=== PATIENT | female | born 1970 | race Caucasian/White ===

== ENCOUNTER 2016-08-21 12:42 | Emergency (ER) | payer OTHER ==
[~2016-08-21] VITALS: Ht 165.1 cm; Wt 77.1 kg
[~2016-08-21 12:42] MED LIST: ATARAX,VISTARIL50 MG PO; ATIVAN1 MG PO; BIAXIN500 MG PO; CARBIDOPA/LEVOD1 TA1 PO; CLARITIN10 MG PO; CYMBALTA60 MG PO; DEPAKOTE500 MG PO; DICYCLOMINE HCL20 MG PO; DOXYCYCLINE MO100 M1 PO; KEFLEX500 MG PO; LOTRIMIN 1%15 GM T; MEDROL DOSEPAK4 MG PO; METHOCARBAMOL750 M1 PO; NATURE'S BLEND F1 MG PO; ONDANSETRON HYDR4 M1 PO; Phenergan25 MG PO; QUETIAPINE FUMA25 MG PO; THERA TABS1 TAB PO; TRAZODONE50 MG PO; VALIUM10 MG PO; VIBRAMYCIN100 MG PO; VITAMIN B-11 TAB PO; WELLBUTRIN SR150 MG PO; XANAX2 M1 PO
[2016-08-21] MEDS ORDERED: SUBOXONE 8 MG-1 EACH SL (12:46)
[2016-08-21] MEDS ORDERED: LIDOCAINE HCL100 M1 MM (12:53)
[2016-08-21] MEDS ORDERED: CLINDAMYCIN150 MG PO (12:53)
== END 2016-08-21 13:58 | disposition home or self-care (01) ==
LOC: ED 12:42
DX: K04.7 Periapical abscess without sinus (principal); R03.0 Elevated blood-pressure reading, without diagnosis of hypertension; F41.9 Anxiety disorder, unspecified; F17.200 Nicotine dependence, unspecified, uncomplicated; F31.9 Bipolar disorder, unspecified; Z88.0 Allergy status to penicillin; Z90.49 Acquired absence of other specified parts of digestive tract; Z88.1 Allergy status to other antibiotic agents; Z88.8 Allergy status to other drugs, medicaments and biological substances; Z79.899 Other long term (current) drug therapy

== ENCOUNTER 2019-09-12 09:56 | Emergency (ER) | payer OTHER ==
[~2019-09-12 09:56] MED LIST changes: +CLINDAMYCIN150 MG PO; +LIDOCAINE HCL100 M1 MM; +SUBOXONE 8 MG-1 EACH SL
[2019-09-12 10:30] LABS: BASO % 0.5 % (0.0-1.0); EOS # 0.1 10*3/uL (0.0-0.4); EOS % 1.3 % (1.0-4.0); HEMATOCRIT 43.3 % (37.0-47.0); LYMPH % 35.6 % (27.0-41.0); MEAN CELL VOLUME 95.4 fl (81.0-99.0); MEAN CORPUSCULAR HGB 32.2 pg (27.0-31.0); MEAN CORPUSCULAR HGB CONC 33.7 g/dl (33.0-37.0); MEAN PLATELET VOLUME 9.2 fl (9.6-12.3); MONO # 0.4 10*3/uL (0.1-1.0); MONO % 6.9 % (3.0-9.0); NEUT % 55.3 % (47.0-73.0); PLATELET COUNT AUTOMATED 290 10*3/uL (130-400); RED BLOOD COUNT 4.54 10*6/uL (4.10-5.10); RED CELL DISTRI WIDTH 12.7 % (0-14.5); WHITE BLOOD COUNT 5.5 10*3/uL (4.8-10.8)
[2019-09-12 10:34] LABS: BACTERIA 2+; BILIRUBIN NEGATIVE (NEGATIVE); BLOOD NEGATIVE (NEGATIVE); CLARITY SL CLOUDY (CLEAR); COLOR YELLOW (YELLOW); EPITHELIAL CELLS 0-2; GLUCOSE NEGATIVE (NEGATIVE); KETONE NEGATIVE (NEGATIVE); LEUKO ESTERASE 2+ (NEGATIVE); NITRITE NEGATIVE (NEGATIVE); PH 6.5 (5.0-9.0); SPECIFIC GRAVITY 1.005 (1.005-1.030); URINE AMPHETAMINES < 1000 (1000ng/ml); URINE BARBITURATES < 200 (200ng/ml); URINE BENZODIAZEPINES < 200 (200ng/ml); URINE CANNABINOIDS (THC) < 50 (50ng/ml); URINE COCAINE > 300 (300ng/ml); URINE METHADONE < 300 (300ng/ml); URINE OPIATES < 300 (300ng/ml); UROBILINOGEN 0.2 E.U./dl (0.2-1.0); WBC 16-20 wbc/hpf (0-5)
[2019-09-12 10:37] LABS: URINE PHENCYCLIDINE < 25 (25ng/ml)
[2019-09-12 10:44] LABS: ACT PARTIAL THROMBO TIME 25.1 SECONDS (20.0-32.1)
[2019-09-12 10:47] LABS: ALBUMIN 3.6 gm/dl (3.1-4.5); ALKALINE PHOSPHATASE 38 U/L (45-117); BUN 9 mg/dl (7-24); CHLORIDE 110 mmol/L (98-107); CREATININE 0.88 mg/dL (0.55-1.02); LIPASE 66 U/L (73-393); POTASSIUM 3.3 mmol/L (3.5-5.1); SGOT/AST 28 IU/L (3-35); SGPT/ALT 51 U/L (12-78); SODIUM 140 mmol/L (136-145); TOTAL PROTEIN 6.9 gm/dL (6.4-8.2)
[2019-09-12 10:48] LABS: ACETAMINOPHEN (TYLENOL) < 5.0 ug/ml (10-30); ETHYL ALCOHOL < 3.0 mg/dl (<3); TROPONIN I < 0.015 ng/ml (<0.045)
== END 2019-09-12 20:46 | disposition home health service (06) ==
LOC: ED 09:56
PROVIDERS: Emergency Medicine
DX: F31.9 Bipolar disorder, unspecified (principal); F41.9 Anxiety disorder, unspecified; Z88.8 Allergy status to other drugs, medicaments and biological substances; Z79.899 Other long term (current) drug therapy

== ENCOUNTER 2020-08-01 17:15 | Inpatient (IN) | payer OTHER ==
[~2020-08-01] VITALS: Ht 165.1 cm; Wt 75.1 kg
[2020-08-01 17:22] VITALS: BP 150/90
[2020-08-01 18:09] LABS: BILIRUBIN Negative (Negative); BLOOD Negative (Negative); CLARITY Cloudy (Clear); COLOR Yellow (Yellow); GLUCOSE Negative (Negative); KETONE Trace (Negative); LEUKO ESTERASE Trace (Negative); NITRITE Negative (Negative); PH 7.5 (4.5-8.0); SPECIFIC GRAVITY 1.025 (1.001-1.030)
[2020-08-01 18:15] LABS: BACTERIA 2+; EPITHELIAL CELLS TNTC; MUCOUS TRACE; RBC 0-2 rbc/hpf (0-2); URINE AMPHETAMINES < 1000 (1000ng/ml); URINE BARBITURATES < 200 (200ng/ml); URINE BENZODIAZEPINES < 200 (200ng/ml); URINE CANNABINOIDS (THC) < 50 (50ng/ml); URINE COCAINE > 300 (300ng/ml); URINE METHADONE < 300 (300ng/ml); URINE OPIATES > 300 (300ng/ml)
[2020-08-01 18:16] LABS: URINE PHENCYCLIDINE < 25 (25ng/ml)
[2020-08-01] MEDS ORDERED: KLONOPIN1 M1 PO (18:22)
[2020-08-01 18:30] LABS: BASO % 0.4 % (0.0-1.0); EOS % 0.4 % (1.0-4.0); HEMATOCRIT 40.3 % (37.0-47.0); LYMPH # 1.8 10*3/uL (1.3-4.4); LYMPH % 26.1 % (27.0-41.0); MEAN CORPUSCULAR HGB 29.3 pg (27.0-31.0); MEAN CORPUSCULAR HGB CONC 32.3 g/dl (33.0-37.0); MONO # 0.4 10*3/uL (0.1-1.0); MONO % 5.1 % (3.0-9.0); NEUT # 4.8 10*3/uL (2.3-7.9); NEUT % 67.9 % (47.0-73.0); PLATELET COUNT AUTOMATED 315 10*3/uL (130-400); RED BLOOD COUNT 4.43 10*6/uL (4.10-5.10); RED CELL DISTRI WIDTH 12.2 % (0-14.5); WHITE BLOOD COUNT 7.1 10*3/uL (4.8-10.8)
[2020-08-01 18:46] LABS: ALBUMIN 3.3 gm/dl (3.1-4.5); ALKALINE PHOSPHATASE 59 U/L (45-117); BUN 10 mg/dl (7-24); CHLORIDE 110 mmol/L (98-107); LIPASE 62 U/L (73-393); POTASSIUM 4.1 mmol/L (3.5-5.1); SGOT/AST 14 IU/L (3-35); SGPT/ALT 25 U/L (12-78); SODIUM 140 mmol/L (136-145); TOTAL PROTEIN 7.6 gm/dL (6.4-8.2)
[2020-08-01 18:50] LABS: ETHYL ALCOHOL < 3.0 mg/dl (<3)
[2020-08-01 20:00] VITALS: BP 115/72
[2020-08-02] VITALS: BP 142/83
[2020-08-02 04:00] VITALS: BP 133/69
[2020-08-02 08:00] VITALS: BP 134/75
[2020-08-02 12:00] VITALS: BP 132/82; BP 143/77
[2020-08-02 16:02] VITALS: BP 135/74
[2020-08-02 20:00] VITALS: BP 130/77
[2020-08-03] VITALS: BP 123/62
[2020-08-03 08:00] VITALS: BP 131/76; BP 140/90
[2020-08-03 12:00] VITALS: BP 135/80
[2020-08-03 16:00] VITALS: BP 134/84
[2020-08-03 20:00] VITALS: BP 138/88
[2020-08-04] VITALS: BP 119/68
[2020-08-04 08:00] VITALS: BP 140/91
[2020-08-04 12:00] VITALS: BP 118/71
[2020-08-04 16:16] VITALS: BP 142/81
[2020-08-04 20:04] VITALS: BP 123/80
[2020-08-05 00:53] VITALS: BP 116/71
[2020-08-05 08:00] VITALS: BP 130/74
== END 2020-08-05 12:22 | disposition home or self-care (01) | DRG 773 ==
LOC: 5E 17:15
PROVIDERS: Family Medicine; ADMIT Internal Medicine; ATTEND Internal Medicine
DX: F11.23 Opioid dependence with withdrawal (principal); F10.239 Alcohol dependence with withdrawal, unspecified; F31.9 Bipolar disorder, unspecified; Z86.718 Personal history of other venous thrombosis and embolism; F41.9 Anxiety disorder, unspecified; F43.10 Post-traumatic stress disorder, unspecified; D68.51 Activated protein C resistance; F17.210 Nicotine dependence, cigarettes, uncomplicated; F14.10 Cocaine abuse, uncomplicated; R00.1 Bradycardia, unspecified; R73.9 Hyperglycemia, unspecified; Z71.6 Tobacco abuse counseling; Z90.49 Acquired absence of other specified parts of digestive tract; Z98.891 History of uterine scar from previous surgery; Z88.0 Allergy status to penicillin; Z88.8 Allergy status to other drugs, medicaments and biological substances; Z79.899 Other long term (current) drug therapy

== ENCOUNTER 2024-07-07 10:03 | Emergency (ER) | payer OTHER ==
[~2024-07-07] VITALS: Ht 165.1 cm; Wt 83.9 kg
[~2024-07-07 10:03] MED LIST changes: +KLONOPIN1 M1 PO; +VITAMIN D350 MC2 GT
[2024-07-07] MEDS ORDERED: VRAYLAR3 MG PO (10:24)
[2024-07-07] MEDS ORDERED: AMITRIPTYLINE50 MG PO (10:24)
[2024-07-07] MEDS ORDERED: DIVALPROEX SOD250 M1 PO (10:25)
[2024-07-07] MEDS ORDERED: LORAZEPAM1 MG PO (10:25)
[2024-07-07] MEDS ORDERED: PERMETHRIN60 GM TD (10:32)
[2024-07-07] MEDS ORDERED: PREDNISONE20 M1 PO (10:32)
[2024-07-07] MEDS ORDERED: CLINDAMYCIN HC300 MG PO (10:32)
== END 2024-07-07 10:38 | disposition home or self-care (01) ==
LOC: ED 10:03
DX: R21 Rash and other nonspecific skin eruption (principal); F31.9 Bipolar disorder, unspecified; I10 Essential (primary) hypertension; E78.5 Hyperlipidemia, unspecified; F41.9 Anxiety disorder, unspecified; F17.200 Nicotine dependence, unspecified, uncomplicated; F19.10 Other psychoactive substance abuse, uncomplicated; Z86.718 Personal history of other venous thrombosis and embolism; Z88.0 Allergy status to penicillin; Z88.8 Allergy status to other drugs, medicaments and biological substances; Z90.49 Acquired absence of other specified parts of digestive tract; Z98.890 Other specified postprocedural states; F41.0 Panic disorder [episodic paroxysmal anxiety]